=== PATIENT | female | born 2000 | race Caucasian/White ===

== ENCOUNTER 2024-08-10 07:56 | Inpatient (IN) | payer OTHER, BC ==
[~2024-08-10 07:56] MED LIST: Carboprost Tromethamine 250 MCG/1 ML Amp IM PRN; Methylergonovine 0.2 MG/1 ML Amp IM PRN; Misoprostol 100 MCG Tab RECTAL PRN; Oxytocin/Lactated Ringers 30 UNIT/500 ML BAG IV SCH; Sodium Chloride 0.9% 10 ML Syringe FLUSH PRN
[2024-08-10 08:17] LABS: HEMOGLOBIN 12.5 g/dL (12.0-16.0); MEAN CORPUSCULAR HEMOGLOBIN 26.7 pg (27.0-34.0); MEAN CORPUSCULAR HGB CONC 32.9 g/dL (33.0-35.0); MEAN CORPUSCULAR VOLUME 81.2 fL (80-100); RED BLOOD CELL COUNT 4.68 10^6/uL (4.2-5.4); WHITE BLOOD CELL COUNT,WBC 10.5 10^3/uL (5.0-10.0)
[2024-08-10] MEDS: Misoprostol 50 MCG (1/2 of 100 MCG) Tab VAG SCH (08:55)
[2024-08-10] MEDS: Misoprostol 25 MCG (1/4 of 100 MCG) Tab PO PRN (14:10)
[2024-08-10] MEDS: Lactated Ringers 1,000 ML IV SCH (15:20)
[2024-08-10] MEDS: Oxytocin/Normal Saline 30 UNIT/500 ML BAG IV SCH (21:50)
[2024-08-10] MEDS ORDERED: hydrOXYzine HCl 25 MG Tab PO PRN (22:37)
[2024-08-11] MEDS: Ondansetron 4 MG/2 ML SDV IVPUSH PRN (08:17)
[2024-08-11] MEDS: Lactated Ringers 1,000 ML IV ONE (08:18)
[2024-08-11] MEDS: Tranexamic Acid 1,000 MG in Sodium Chloride 0.9% 100 ML IV PRN (10:20)
[2024-08-11] MEDS ORDERED: Simethicone 80 MG Tab.Chew PO PRN (10:37)
[2024-08-11] MEDS ORDERED: Acetaminophen 325 MG Tab PO PRN (10:37)
[2024-08-11] MEDS ORDERED: Oxytocin 10 Units/1 ML SDV IM PRN (10:37)
[2024-08-11] MEDS: Lidocaine 1% 30 ML SDV INJECT ONE (10:59)
[2024-08-11] MEDS: Ibuprofen 800 MG Tab PO SCH (11:12)
[2024-08-11] MEDS: Witch Hazel Medicated Pads 100/Jar TOP PRN (11:13)
[2024-08-11] MEDS: Benzocaine/Menthol 20%-0.5% Spray 78 GM Cannister TOP PRN (11:13)
[2024-08-11] MEDS: Docusate Sodium 100 MG Cap PO PRN (20:27)
[2024-08-12] MEDS: Prenatal Multivitamin with Calcium/Folic Acid/Iron Tab PO SCH (08:37)
[2024-08-12 10:55] LABS: HEMATOCRIT 30.7 % (37.0-47.0); HEMOGLOBIN 9.8 g/dL (12.0-16.0); MEAN CORPUSCULAR HEMOGLOBIN 26.8 pg (27.0-34.0); MEAN CORPUSCULAR HGB CONC 31.9 g/dL (33.0-35.0); MEAN CORPUSCULAR VOLUME 83.9 fL (80-100); RED BLOOD CELL COUNT 3.66 10^6/uL (4.2-5.4); WHITE BLOOD CELL COUNT,WBC 9.9 10^3/uL (5.0-10.0)
[2024-08-12] MEDS ORDERED: Ropivacaine 100 ML EPIDUR ONE (12:52)
[2024-08-12] MEDS ORDERED: Ondansetron 4 MG/2 ML SDV IV ONE (12:52)
[2024-08-12] MEDS ORDERED: Ketorolac 30 MG/ML SDV IVPUSH ONE (12:52)
== END 2024-08-12 12:53 | disposition home or self-care (01) | DRG 807 ==
LOC: DL.OB 07:56 → OBSVTOIN 08-11 10:12
PROVIDERS: ADMIT Family Medicine; ATTEND Family Medicine
PROC: 10E0XZZ Delivery of Products of Conception, External Approach (ICD-10-PCS; principal; 2024-08-11)
PROC: 0KQM0ZZ Repair Perineum Muscle, Open Approach (ICD-10-PCS; 2024-08-11)
PROC: 10907ZC Drainage of Amniotic Fluid, Therapeutic from Products of Conception, Via Natural or Artificial Opening (ICD-10-PCS; 2024-08-11)
PROC: 3E0DXGC Introduction of Other Therapeutic Substance into Mouth and Pharynx, External Approach (ICD-10-PCS; 2024-08-11)
PROC: 3E0P7VZ Introduction of Hormone into Female Reproductive, Via Natural or Artificial Opening (ICD-10-PCS; 2024-08-11)
PROC: 4A1HXCZ Monitoring of Products of Conception, Cardiac Rate, External Approach (ICD-10-PCS; 2024-08-11)
PROC: 3E0R3BZ Introduction of Anesthetic Agent into Spinal Canal, Percutaneous Approach (ICD-10-PCS; 2024-08-11)
PROC: 00HU33Z Insertion of Infusion Device into Spinal Canal, Percutaneous Approach (ICD-10-PCS; 2024-08-11)
DX: O36.63X0 Maternal care for excessive fetal growth, third trimester, not applicable or unspecified (principal); Z3A.39 39 weeks gestation of pregnancy; Z37.0 Single live birth; O69.81X0 Labor and delivery complicated by cord around neck, without compression, not applicable or unspecified; O70.1 Second degree perineal laceration during delivery; O62.2 Other uterine inertia
CPT/HCPCS: 36415; 51702; 59409; 85027; A9270-GY; J1885; J2405; J2590; J2795; J7120

== ENCOUNTER 2024-12-30 22:45 | Emergency (ER) | payer OTHER, BC | END 2024-12-30 23:28 | disposition home or self-care (01) | LOC: DL.ED 22:45 | DX: L08.9 Local infection of the skin and subcutaneous tissue, unspecified (principal) | CPT/HCPCS: 99283; A9270-GY ==